=== PATIENT | female | born 1995 | race Caucasian/White ===

== ENCOUNTER 2017-05-09 10:50 | Emergency (ER) | payer BC, OTHER ==
[2017-05-09 10:58] VITALS: BP 123/77; PULSE 81; RESP 16; TEMP 97.9; O2SAT 99
--- NOTE | 2017-05-09 11:34 | EDPHY ---
H & P Stated Complaint: head injury last night Time Seen by Provider: 05/09/17 11:34 HPI/ROS: HPI: This is a 21-year-old female who presents with Chief Complaint: Injury Location: Right occipital Quality: Pain Duration: Yesterday Signs and Symptoms:+ mild dull aching headache, ? Transient loss of consciousness, + transient amnesia, no nausea, no vomiting, no dizziness, no neck pain, no weakness, no radiation, no numbness Timing: Sudden Severity: Constant Context: Patient reports that she was wrestling with her friend yesterday. He picked her up and she hit the right side of her head on the coffee table. She felt immediate pain dizziness and nausea. She reports now that she does not remember certain events surrounding the incident. She woke up this morning with a pounding headache on her right side of her head; took Tylenol with mild relief. Denies any neck pain. Modifying Factors: Tylenol mild relief Comment: ROS: Constitutional: No fever, no chills, no weight loss Eyes: No blurred vision Respiratory: No shortness of breath, no cough Cardiovascular: No chest pain Gastrointestinal: No nausea, no vomiting no diarrhea Genitourinary: No dysuria Extremities: No myalgias Neurologic: No weakness, no numbness Skin: No rashes Hematologic: No bruising, no bleeding MEDICAL/SURGICAL/SOCIAL HISTORY: Generally healthy. College student. Source: Patient Exam Limitations: No limitations - Personal History LMP (Females 10-55): IUD In Place Current Tetanus/Diphtheria Vaccine: Yes Current Tetanus Diphtheria and Acellular Pertussis (TDAP): Yes - Medical/Surgical History Hx Asthma: No Hx Chronic Respiratory Disease: No Hx Diabetes: No Hx Cardiac Disease: No Hx Renal Disease: No Hx Cirrhosis: No Hx Alcoholism: No Hx HIV/AIDS: No Hx Splenectomy or Spleen Trauma: No - Social History Smoking Status: Never smoked - Physical Exam Exam: CONSTITUTIONAL: Well-appearing young adult white female, awake and alert, no obvious distress HEENT: Atraumatic and normocephalic, PERRL, EOMI. No periorbital ecchymosis. Tympanic membranes clear and intact. Oropharynx clear, no exudate and moist pink mucosa. Airway patent. NECK: supple, left rotation 80, right rotation 80, flexion 45, extension 45 . Mild bilateral reproducible trapezius tenderness on lateral neck. No lymphadenopathy. No meningismus. Cardiovascular: Normal S1/S2, regular rate, regular rhythm, without murmur rub or gallop. PULMONARY/CHEST: Symmetrical and nontender. Clear to auscultation bilaterally Good air movement. No accessory muscle usage. ABDOMEN: Soft, nondistended, nontender, no rebound, no guarding, no peritoneal signs, no masses or organomegaly. No CVAT. EXTREMITIES: 2/2 pulses, no deformities, no clubbing, no cyanosis or edema. NEUROLOGICAL: no focal neuro deficits. GCS 15. SKIN: Warm and dry, no erythema. no rash. Good capillary refill. Constitutional: Initial Vital Signs Temperature (C) 36.6 C 05/09/17 10:56 Heart Rate 81 05/09/17 10:56 Respiratory Rate 16 05/09/17 10:56 Blood Pressure 123/77 H 05/09/17 10:56 O2 Sat (%) 99 05/09/17 10:56 O2 Delivery Mode Room Air Allergies/Adverse Reactions: No Known Allergies Allergy (Unverified 06/27/16 15:22) Medical Decision Making - Diagnostics Imaging Results: Imaging Impressions Head CT 05/09/17 11:26 Impression: 1. No significant intracranial abnormality seen. 2. Normal CT cervical spine. If symptoms worsen, additional imaging may be necessary. Findings discussed with Maria Del Rosario Freeman PAC at 12:46 hour, 05/09/2017. Cervical Spine CT 05/09/17 11:27 Impression: 1. No significant intracranial abnormality seen. 2. Normal CT cervical spine. If symptoms worsen, additional imaging may be necessary. Findings discussed with Maria Del Rosario Freeman PAC at 12:46 hour, 05/09/2017. ED Course/Re-evaluation: Head CT scan, Cervical CT scan ordered ? LOC with amnesia Politely decline NSAIDs or muscle relaxers Called by radiologist and head CT scan shows no acute intracranial process. CT cervical scan shows no fracture/herniation. Advised supportive care for mild concussion. Differential Diagnosis: Head injury including but not limited to concussion, skull fracture, intraparenchymal contusion, subarachnoid, subdural and epidural hematoma. Departure - Departure Disposition: Home, Routine, Self-Care Clinical Impression: Mild concussion Qualifiers: Encounter type: initial encounter Loss of consciousness presence/duration: with LOC of 30 min or less Qualified Code(s): S06.0X1A - Concussion with loss of consciousness of 30 minutes or less, initial encounter Condition: Good Instructions: Concussion (ED) Additional Instructions: Take Tylenol and ibuprofen as needed for pain, headache. Rest as much as you can within the next 1-2 days. Avoid direct contact sports that may cause re-injury until all symptoms have resolved. Referrals: [facility],. [Clinic] - As per Instructions
== END 2017-05-09 13:16 | disposition home or self-care (01) ==
DX: S06.0X1A Concussion with loss of consciousness of 30 minutes or less, initial encounter (principal); W22.09XA Striking against other stationary object, initial encounter; Y99.8 Other external cause status; Y93.72 Activity, wrestling